=== PATIENT | female | born 1950 | race African-American/Black ===

== ENCOUNTER 2020-07-16 13:10 | Inpatient (IN) ==
[2020-07-16 14:40] LABS: Basophils # 0.1 10*3/uL (0.0-0.2); Basophils % 0.5 % (0.0-0.8); Eosinophils # 0.4 10*3/uL (0.0-0.87); Eosinophils % 3.3 % (0.00-10.9); Hematocrit 25.6 VOL% (35.7-47.0); Immature Granulocytes % 0.4 %; Immature Granulocytes Absolute 0.05 #; Lymphocytes # 3.4 10*3/uL (1.4-4.0); Lymphocytes % 27.7 % (21.3-54.2); Mean Corpuscular HGB Conc 35.2 GM/DL (32-36); Mean Platelet Volume 12.7 FL (9.6-12.0); Monocytes % 7.8 % (1.7-12.7); Neutrophils % 60.3 % (38.7-73.9); Platelet Count 196 T/CUMM (130-400); Red Blood Count 3.28 MC/CUMM (3.8-5.5); Red Cell Distribution Width 13.8 % (9.3-17.3); White Blood Count 12.1 T/CUMM (4-12)
[2020-07-16 15:04] LABS: Alanine Aminotransferase 14 U/L (13-56); Albumin 2.8 G/DL (3.4-5.0); Alkaline Phosphatase 66 U/L (45-117); Aspartate Amino Transferase 18 U/L (0-37); Bilirubin,Total < 0.39 MG/DL (0.2-1.0); Blood Urea Nitrogen 14 MG/DL (7-18); Calcium 8.8 MG/DL (8.5-10.1); Estimated Glom Filtration Rate 82 ML/MIN; Glucose 113 MG/DL (74-106); Osmolality,Calculated 284.1 MOS/KG (273-304); Total Protein 7.1 G/DL (6.4-8.3)
[2020-07-16] MEDS ORDERED: GLUCAGON 1 MG VIAL IM PRN (15:56)
[2020-07-16] MEDS ORDERED: SODIUM CHLORIDE 0.9% 1,000 ML IV PRN (15:56)
[2020-07-16] MEDS ORDERED: DEXTROSE 50% 25 GM/50 ML VIAL IV PRN (15:56)
[2020-07-16] MEDS ORDERED: ACETAMINOPHEN 325 MG TABLET PO PRN (15:56)
[2020-07-16] MEDS: LEVOFLOXACIN INJ 500 MG in PREMIX 1 EACH IV SCH (16:51)
[2020-07-16 17:56] LABS: Hematocrit 24.1 VOL% (35.7-47.0); Hemoglobin 8.6 GM/DL (12.0-16.0)
[2020-07-16] MEDS: metroNIDAZOLE INJ 500 MG in PREMIX 1 EACH IV SCH (20:35)
[2020-07-16 22:33] LABS: Hematocrit 20.4 VOL% (35.7-47.0); Hemoglobin 7.3 GM/DL (12.0-16.0)
[2020-07-17] MEDS: metroNIDAZOLE INJ 500 MG in PREMIX 1 EACH IV SCH ×4 (02:31→21:50)
[2020-07-17] MEDS: PANTOPRAZOLE 40 MG TABLET PO SCH ×2 (09:27→21:49)
[2020-07-17 13:02] LABS: Hematocrit 25.9 VOL% (35.7-47.0); Hemoglobin 8.9 GM/DL (12.0-16.0)
[2020-07-17 13:26] LABS: Alanine Aminotransferase 11 U/L (13-56); Albumin 2.5 G/DL (3.4-5.0); Alkaline Phosphatase 59 U/L (45-117); Aspartate Amino Transferase 15 U/L (0-37); Bilirubin,Total < 0.39 MG/DL (0.2-1.0); Blood Urea Nitrogen 13 MG/DL (7-18); Calcium 8.4 MG/DL (8.5-10.1); Estimated Glom Filtration Rate 92 ML/MIN; Glucose 95 MG/DL (74-106); Total Protein 6.2 G/DL (6.4-8.3)
[2020-07-17] MEDS: SODIUM CHLORIDE 0.9% 1,000 ML IV SCH (18:06)
[2020-07-17] MEDS: LEVOFLOXACIN INJ 500 MG in PREMIX 1 EACH IV SCH (18:15)
[2020-07-17] MEDS: allopurinoL 100 MG TABLET PO SCH (18:20)
[2020-07-17] MEDS: POTASSIUM CHLORIDE 20 MEQ TABLET PO SCH (18:20)
[2020-07-17] MEDS: amLODIPine 10 MG TABLET PO SCH (18:20)
[2020-07-18 00:55] LABS: Hemoglobin 7.6 GM/DL (12.0-16.0)
[2020-07-18] MEDS: metroNIDAZOLE INJ 500 MG in PREMIX 1 EACH IV SCH ×4 (02:58→20:41)
[2020-07-18] MEDS: SODIUM CHLORIDE 0.9% 1,000 ML IV SCH ×2 (05:49→19:24)
[2020-07-18 07:00] LABS: Hematocrit 22.9 VOL% (35.7-47.0)
[2020-07-18 07:59] LABS: Calcium 8.3 MG/DL (8.5-10.1)
[2020-07-18] MEDS ORDERED: LACTATED RINGERS 1,000 ML IV SCH (08:00)
[2020-07-18 08:07] LABS: Osmolality,Calculated 287.7 MOS/KG (273-304)
[2020-07-18] MEDS ORDERED: LIDOCAINE 2% 5 ML VIAL ONE (10:43)
[2020-07-18] MEDS ORDERED: propofoL 200 MG/20 ML VIAL IV ONE (10:43)
[2020-07-18] MEDS: ONDANSETRON 4 MG/2 ML VIAL IV PRN ×2 (11:10→23:39)
[2020-07-18] MEDS: POTASSIUM CHLORIDE 20 MEQ TABLET PO SCH (11:47)
[2020-07-18] MEDS: allopurinoL 100 MG TABLET PO SCH (11:47)
[2020-07-18] MEDS: FERROUS SULFATE 325 MG TABLET PO SCH (11:47)
[2020-07-18] MEDS: MULTIVITAMIN (CENTRUM) TABLET PO SCH (11:47)
[2020-07-18] MEDS: PANTOPRAZOLE 40 MG TABLET PO SCH ×3 (11:48→20:44)
[2020-07-18] MEDS: amLODIPine 10 MG TABLET PO SCH (11:50)
[2020-07-18 15:27] LABS: Hematocrit 23.5 VOL% (35.7-47.0); Hemoglobin 7.9 GM/DL (12.0-16.0)
[2020-07-18] MEDS: LEVOFLOXACIN INJ 500 MG in PREMIX 1 EACH IV SCH (19:25)
[2020-07-19] MEDS: SODIUM CHLORIDE 0.9% 1,000 ML IV SCH ×4 (01:29→14:50)
[2020-07-19] MEDS: metroNIDAZOLE INJ 500 MG in PREMIX 1 EACH IV SCH ×4 (03:35→20:20)
[2020-07-19 06:49] LABS: Basophils # 0.1 10*3/uL (0.0-0.2); Basophils % 0.6 % (0.0-0.8); Eosinophils # 0.5 10*3/uL (0.0-0.87); Eosinophils % 4.7 % (0.00-10.9); Hematocrit 22.7 VOL% (35.7-47.0); Hemoglobin 7.7 GM/DL (12.0-16.0); Immature Granulocytes % 1.5 %; Immature Granulocytes Absolute 0.16 #; Lymphocytes # 3.2 10*3/uL (1.4-4.0); Lymphocytes % 29.7 % (21.3-54.2); Mean Corpuscular HGB Conc 33.9 GM/DL (32-36); Mean Corpuscular Volume 82.8 FL (87-102); Monocytes % 5.5 % (1.7-12.7); NRBC # 0.05 10*3/uL; Platelet Count 235 T/CUMM (130-400); Red Blood Count 2.74 MC/CUMM (3.8-5.5); Red Cell Distribution Width 14.9 % (9.3-17.3); White Blood Count 10.6 T/CUMM (4-12)
[2020-07-19 07:13] LABS: Calcium 8.2 MG/DL (8.5-10.1); Osmolality,Calculated 284.8 MOS/KG (273-304)
[2020-07-19] MEDS: allopurinoL 100 MG TABLET PO SCH (08:31)
[2020-07-19] MEDS: MULTIVITAMIN (CENTRUM) TABLET PO SCH (08:31)
[2020-07-19] MEDS: amLODIPine 10 MG TABLET PO SCH ×2 (08:31→08:33)
[2020-07-19] MEDS: FERROUS SULFATE 325 MG TABLET PO SCH (08:31)
[2020-07-19] MEDS: POTASSIUM CHLORIDE 20 MEQ TABLET PO SCH (08:31)
[2020-07-19] MEDS: PANTOPRAZOLE 40 MG TABLET PO SCH ×2 (08:31→20:20)
[2020-07-19] MEDS: ONDANSETRON 4 MG/2 ML VIAL IV PRN (08:38)
[2020-07-19 08:48] LABS: Eosinophils 3 % (0-10); Lymphocytes 29 % (20-55); Segmented Neutrophils 61 % (50-85); Total Cells Counted 100
[2020-07-19 08:49] LABS: Hypochromasia 1+; Ovalocytes Slight; Platelet Estimate Normal; Polychromasia Slight
[2020-07-19] MEDS ORDERED: SODIUM CHLORIDE 0.9% 1,000 ML IV PRN (09:08)
[2020-07-19] MEDS: LEVOFLOXACIN INJ 500 MG in PREMIX 1 EACH IV SCH (17:12)
[2020-07-19 19:25] LABS: Hematocrit 27.7 VOL% (35.7-47.0)
[2020-07-19 19:27] LABS: Hemoglobin 9.4 GM/DL (12.0-16.0)
[2020-07-20] MEDS: metroNIDAZOLE INJ 500 MG in PREMIX 1 EACH IV SCH ×2 (02:11→09:48)
[2020-07-20 06:36] LABS: Basophils # 0.1 10*3/uL (0.0-0.2); Basophils % 0.7 % (0.0-0.8); Eosinophils # 0.5 10*3/uL (0.0-0.87); Eosinophils % 4.1 % (0.00-10.9); Hematocrit 28.1 VOL% (35.7-47.0); Hemoglobin 9.5 GM/DL (12.0-16.0); Immature Granulocytes % 2.7 %; Immature Granulocytes Absolute 0.33 #; Lymphocytes # 3.2 10*3/uL (1.4-4.0); Lymphocytes % 26.8 % (21.3-54.2); Mean Corpuscular HGB Conc 33.8 GM/DL (32-36); Mean Corpuscular Volume 86.5 FL (87-102); Mean Platelet Volume 10.9 FL (9.6-12.0); Monocytes % 6.6 % (1.7-12.7); NRBC # 0.12 10*3/uL; Neutrophils % 59.1 % (38.7-73.9); Platelet Count 249 T/CUMM (130-400); Red Blood Count 3.25 MC/CUMM (3.8-5.5); Red Cell Distribution Width 16.5 % (9.3-17.3)
[2020-07-20 06:58] LABS: Calcium 8.2 MG/DL (8.5-10.1); Osmolality,Calculated 285.7 MOS/KG (273-304)
[2020-07-20 08:16] LABS: Band Neutrophils 1 % (0-10); Eosinophils 3 % (0-10); Lymphocytes 28 % (20-55); Nucleated Red Blood Cells 1 (0-5); Segmented Neutrophils 63 % (50-85); Total Cells Counted 100
[2020-07-20 08:17] LABS: Anisocytosis 2+; Platelet Estimate Normal; Polychromasia Slight; Smudge Cells Few; Target Cells Few
[2020-07-20 08:26] VITALS: BP 175/47
[2020-07-20] MEDS: amLODIPine 10 MG TABLET PO SCH (09:49)
[2020-07-20] MEDS: FERROUS SULFATE 325 MG TABLET PO SCH (09:49)
[2020-07-20] MEDS: allopurinoL 100 MG TABLET PO SCH (09:49)
[2020-07-20] MEDS: POTASSIUM CHLORIDE 20 MEQ TABLET PO SCH (09:49)
[2020-07-20] MEDS: PANTOPRAZOLE 40 MG TABLET PO SCH (09:49)
[2020-07-20] MEDS: MULTIVITAMIN (CENTRUM) TABLET PO SCH (09:49)
[2020-07-20] MEDS: SODIUM CHLORIDE 0.9% 1,000 ML IV SCH (10:04)
== END 2020-07-20 13:35 | disposition home or self-care (01) | DRG 378 ==
LOC: N.ED 13:10 → N.EDINP 13:10 → OBSVTOIN 17:56 → N.EDINP 18:37 → N.5E 18:56
PROVIDERS: ADMIT Emergency Medicine; ATTEND Emergency Medicine